=== PATIENT | female | born 1965 | race Caucasian/White ===

== ENCOUNTER 2017-10-04 07:49 | Day surgery (SDC) | payer SELFPAY ==
[~2017-10-04 07:49] MED LIST: Lactated Ringers 1,000 ML IV SCH; Lidocaine 1%/Sod Bicarbonate in NS 8.4% 1 ML Syringe IDERM PRN; Sodium Chloride 0.9% 10 ML Syringe FLUSH PRN
[2017-10-04] MEDS ORDERED: fentaNYL 100 MCG/2 ML SDV ONE (08:09)
[2017-10-04] MEDS ORDERED: Midazolam 1 MG/ML 2 ML SDV ONE (08:09)
[2017-10-04] MEDS ORDERED: Propofol 200 MG/20 ML SDV ONE (08:09)
[2017-10-04] MEDS ORDERED: Lidocaine 1% 4 ML ONE (08:09)
--- NOTE | 2017-10-04 08:48 | PCM.PREANE ---
Preanesthetic Assessment - Procedure Proposed Procedure: diagnostic egd and colon - Anesthesia/Transfusion/Family Hx Anesthesia History: Prior Anesthesia Without Reaction Family History of Anesthesia Reaction: No Transfusion History: No Prior Transfusion(s) - Review of Systems General: No Symptoms Pulmonary: No Symptoms Cardiovascular: No Symptoms Gastrointestinal: No Symptoms Neurological: Seizure (once- 2007) Other: Reports: Depression, Anxiety - Physical Assessment NPO Status Date: 10/04/17 NPO Status Time: 23:55 (sip with pills at 0700) O2 Sat by Pulse Oximetry: 97 Respiratory Rate: 17 Vital Signs: Last Vital Signs Temp 98.1 F 10/04/17 07:55 Pulse 75 10/04/17 07:55 Resp 17 10/04/17 07:55 BP 111/76 10/04/17 07:55 Pulse Ox 97 10/04/17 07:55 Height: 5 ft 6 in Weight: 84.7 kg ASA Class: 2 Mental Status: Alert & Oriented x3 Airway Class: Mallampati = 1 Dentition: Reports: Normal Dentition, Broken Tooth/Teeth (chipped) ROM/Head Extension: Full Lungs: Clear to Auscultation, Normal Respiratory Effort, Crackles Cardiovascular: Regular Rate, Regular Rhythm - Allergies Allergies/Adverse Reactions: Allergies Allergy/AdvReac Type Severity Reaction Status Date / Time No Known Allergies Allergy Verified 10/04/17 08:24 - Blood Blood Available: No - Acknowledgements Anesthesia Type Planned: MAC Pt an Appropriate Candidate for the Planned Anesthesia: Yes Alternatives and Risks of Anesthesia Discussed w Pt/Guardian: Yes Pt/Guardian Understands and Agrees with Anesthesia Plan: Yes PreAnesthesia Questionnaire HEENT History: Reports: Impaired Vision Cardiovascular History: Reports: None Respiratory History: Reports: SOB (with exertion) Gastrointestinal History: Reports: Helicobacter Pylori Genitourinary History: Reports: None FERRY HAND History: Reports: None Musculoskeletal History: Reports: None Neurological History: Reports: Seizure Psychiatric History: Reports: Anxiety, Depression Endocrine/Metabolic History: Reports: None, Obesity/BMI 30+ Hematologic History: Reports: Anemia Immunologic History: Reports: None Oncologic (Cancer) History: Reports: None Dermatologic History: Reports: Psoriasis - Past Surgical History Head Surgeries/Procedures: Reports: None HEENT Surgical History: Reports: None Cardiovascular Surgical History: Reports: None Respiratory Surgical History: Reports: None GI Surgical History: Reports: None Female Surgical History: Reports: None, Section, D&C Male Surgical History: Reports: None Endocrine Surgical History: Reports: None Musculoskeletal Surgical History: Reports: Other (See Below) Other Musculoskeletal Surgeries/Procedures:: left wrist surgery Oncologic Surgical History: Reports: None Dermatological Surgical History: Reports: None - SUBSTANCE USE Smoking Status *Q: Never Smoker Tobacco Use Within Last Twelve Months: No Second Hand Smoke Exposure: No Days Per Week of Alcohol Use: 0 (seldom) Recreational Drug Use History: No - HOME MEDS Home Medications: Home Meds Acetaminophen [Tylenol Extra Strength] 500 mg PO Q4H PRN 10/01/17 [History] Colloidal Oatmeal [Gold Roca Ultimate Eczema Rlf] 1 dose TOP BID PRN 10/01/17 [ History] Ferrous Sulfate [Iron] 325 mg PO BID 10/01/17 [History] Ibuprofen 600 mg PO Q6H PRN 10/01/17 [History] Loratadine [Claritin] 10 mg PO DAILY 10/01/17 [History] Multivitamin [Daily Multiple Vitamin] 1 tab PO BID 10/01/17 [History] Sertraline [Zoloft] 50 mg PO DAILY 10/01/17 [History] Tetrahydrozoline HCl [Eye Drops] 1 drop EYEBOTH Q4H PRN 10/01/17 [History] lamoTRIgine [Lamictal] 100 mg PO BID 10/01/17 [History] - CURRENT (IN HOUSE) MEDS Current Meds: Current Medications Lactated Ringer's (Ringers, Lactated) 1,000 mls @ 125 mls/hr IV ASDIRECTED CARLEEN Stop: 10/04/17 23:00 Last Admin: 10/04/17 08:12 Dose: 125 mls/hr Lidocaine/Sodium Bicarbonate (Buffered Lidocaine 1% In Ns 8.4%) 0.25 ml IDERM ONETIME PRN PRN Reason: Prior to IV Start Stop: 10/04/17 18:00 Sodium Chloride (Saline Flush) 10 ml FLUSH ASDIRECTED PRN PRN Reason: Keep Vein Open Stop: 10/04/17 18:00 Discontinued Medications Fentanyl (Sublimaze) Confirm Administered Dose 100 mcg .ROUTE .STK-MED ONE Stop: 10/04/17 08:10 Lidocaine HCl (Xylocaine-Mpf 1%) Confirm Administered Dose 4 mls @ as directed .ROUTE .STK-MED ONE Stop: 10/04/17 08:10 Midazolam HCl (Versed 1 Mg/Ml) Confirm Administered Dose 2 mg .ROUTE .STK-MED ONE Stop: 10/04/17 08:10 Propofol (Diprivan 20 Ml) Confirm Administered Dose 400 mg .ROUTE .STK-MED ONE Stop: 10/04/17 08:10
[2017-10-04] MEDS ORDERED: Ondansetron 4 MG/2 ML SDV IVPUSH PRN (10:43)
--- NOTE | 2017-10-04 10:43 | PCM.OPNOTE ---
- General Post-Op/Procedure Note Date of Surgery/Procedure: 10/04/17 Operative Procedure(s): EGD with bx and colonosocopy to cecum with bx and polypectomy Pre Op Diagnosis: anemia Post-Op Diagnosis: anemia Primary Surgeon: Jeremiah Treadwell EBL in mLs: 0 Complications: None Condition: Good
--- NOTE | 2017-10-04 10:44 | PCM48HPAN ---
Post Anesthesia Note - EVALUATION WITHIN 48HRS OF ANESTHETIC Vital Signs in Normal Range: Yes Patient Participated in Evaluation: Yes Respiratory Function Stable: Yes Airway Patent: Yes Cardiovascular Function Stable: Yes Hydration Status Stable: Yes Pain Control Satisfactory: Yes Nausea and Vomiting Control Satisfactory: Yes Mental Status Recovered: Yes Pulse Rate: 77 SaO2: 95 Resp Rate: 14 Temperature: 97.6 F Blood Pressure: 102/68
--- NOTE | 2017-10-05 08:49 | OR ---
DATE OF OPERATION: 10/04/2017 SURGEON: Jeremiah Treadwell MD PREOPERATIVE DIAGNOSIS: Anemia. POSTOPERATIVE DIAGNOSIS: Anemia. OPERATION PERFORMED: Esophagogastroduodenoscopy with biopsy. FINDINGS: Fixed hiatal hernia. GE junction at 30 cm with esophageal erosions noted fci around the esophagus with eschar. There was associated with an incompetent hiatus. Second portion of the duodenum, duodenal bulb, pyloric channel were unremarkable. Antrum did not show any gross pathology. Body and cardia and fundus of the stomach were unremarkable. The biopsy of the antrum was done looking for H. pylori. ANESTHESIA: Procedure done under IV sedation, EGD with biopsy. DESCRIPTION OF PROCEDURE: The patient was taken to the endoscopy room, placed in a supine position, connected to monitoring equipment, given IV sedation and placed in the left lateral position. A bite block was inserted and video Olympus gastroscope placed in the posterior oropharynx, under direct vision threaded past the cricopharyngeus down the esophagus into the stomach. The stomach was insufflated, and the scope passed through the pylorus to the second portion of the duodenum. This slowly withdrawn showing normal 2nd portion of the duodenum, duodenal bulb, pyloric channel. Antrum, body, and cardia of the stomach were viewed unremarkable. J maneuver was performed showing an incompetent hiatus. Biopsies of the antrum were performed. The scope withdrawn to the GE junction where the above noted was found and multiple biopsies were taken of the GE junction. The rest of the esophagus was viewed from 30 cm up and was unremarkable. The patient tolerated the procedure and will continue with IV sedation for colonoscopy. ESTIMATED BLOOD LOSS: MMODAL /[id number]
--- NOTE | 2017-10-05 09:15 | OR ---
DATE OF OPERATION: 10/04/2017 SURGEON: Jeremiah Treadwell MD PREOPERATIVE DIAGNOSIS: Anemia. POSTOPERATIVE DIAGNOSIS: Anemia. OPERATION PERFORMED: Colonoscopy to cecum with cannulation of the ileum, removal of a diminutive polyp at 50 cm by cold biopsy forceps with retrieval, and biopsy of the rectum. FINDINGS: A small diminutive polyp at 50 cm which was removed completely, and there were some aphthous ulcers noted in the rectum, either might be related to the prep. Biopsies were taken. There was an occasional diverticulum in the sigmoid colon. There were no large tumor masses, ulcerations, angiodysplasias, or notable hemorrhoids. ANESTHESIA: Procedure done under IV sedation. DESCRIPTION OF PROCEDURE: The patient was taken to the endoscopy room and having been connected to monitoring equipment, given IV sedation and for upper GI endoscopy. IV sedation was continued for colonoscopy. She was placed in the left lateral position. Perianal area was inspected and was normal. Rectal exam showed good sphincter tone. A video Olympus colonoscope was then introduced into the rectum and threaded up without problem to the cecum where the appendicular orifice was noted. Ileum was cannulated without any problem. The prep was excellent throughout. [place] Cleansing score grade A, and the scope was slowly withdrawn showing the cecum, ascending colon, transverse colon, descending colon, sigmoid colon, and rectum. The above noted was found. A polyp at 50 cm identified, was diminutive, and removed completely with cold biopsy forceps. There were some aphthous sores like lesions in the rectum, and these were biopsied. The patient tolerated the procedure, sent to recovery room in stable condition. Specimen sent to Pathology in a labeled container, and the patient will be followed up in the clinic. ESTIMATED BLOOD LOSS: MMODAL /[id number]
== END 2017-10-04 11:21 | disposition home or self-care (01) ==
LOC: JD.SDS 07:49
PROVIDERS: ATTEND Surgery
DX: K29.50 Unspecified chronic gastritis without bleeding (principal); D12.7 Benign neoplasm of rectosigmoid junction; K44.9 Diaphragmatic hernia without obstruction or gangrene; D64.9 Anemia, unspecified; K62.6 Ulcer of anus and rectum; K57.30 Diverticulosis of large intestine without perforation or abscess without bleeding; K22.10 Ulcer of esophagus without bleeding
CPT/HCPCS: 43239; 45380; J2001; J2250; J3010; J7120; 00813; J2704

== ENCOUNTER 2020-09-16 19:36 | Emergency (ER) | payer BC ==
--- NOTE | 2020-09-16 20:43 | EDM.PDOC ---
ED HPI GENERAL MEDICAL PROBLEM - General Chief Complaint: Respiratory Problem Stated Complaint: SOB Time Seen by Provider: 09/16/20 20:09 Source of Information: Reports: Patient History Limitations: Reports: Other (Patient is impatient, does not want to answer questions) - History of Present Illness INITIAL COMMENTS - FREE TEXT/NARRATIVE: Ms. Hubbard is a 54-year-old woman who now presents the ED stating that she has been experiencing dyspnea on and off over the past week, primarily triggered when she smells a neighbor's cigarette smoke, although more recently it may have been triggered by other smells. She also experiences dyspnea on exertion. She states that she sometimes finds herself wheezing at night, which she is able to clear with a cough. She reports experiencing retrosternal chest discomfort, a tightness, today, but only with exertion. She feels that her chest is tight because of her trouble breathing. She is able to relieve the chest tightness if she takes a deep breath and holds it. The patient was seen at the walk-in clinic around 1730 this evening. Paperwork from the walk-in clinic indicates that they performed a CBC, D-dimer, a swab for the SARS-CoV-2 virus, a chest x-ray, and an ECG. Her CBC was remarkable for an H/H but at 16.0/50.2, respectively, with the remainder of her CBC being unremarkable. Her D-dimer was slightly elevated at 0.56. Her swab for the SARS-CoV-2 virus returned negative. The chest x-ray was read by radiology as "Patchy atelectasis in the lingula. No focal consolidation or pleural effusions. Normal heart size. Degenerative changes in the the spine." ECG demonstrated a normal sinus rhythm at 94 bpm. No atrial enlargement or AV block. No ischemic changes. Poor R wave progression. 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 No LVH or RVH. No intraventricular conduction delays. Her QTc was within normal limits at 414 ms. The patient states that she was not given any medication, but sent here because of the abnormal D-dimer and ECG. Here in the ED, the patient is found to be hemodynamically stable, afebrile, saturating 97% on room air. She is in no acute distress, but, for reasons unclear, appears to be angry. Prior to the last week, the patient denies having a recent fever, chills, sore throat, ear pain, nasal or sinus congestion, cough, dyspnea, chest pain, palpitations, nausea, vomiting, constipation, diarrhea, abdominal pain, urinary symptoms, recent weight gain or weight loss, recent bloody bowel movements or black bowel movements, recent joint aches, headaches, or rashes. I reviewed the PMHx/PSHx/SocHx, which was reviewed with the patient by the RN. The patient does not have a PCP. - Related Data Allergies Allergy/AdvReac Type Severity Reaction Status Date / Time No Known Allergies Allergy Verified 09/16/20 20:02 Home Meds: Home Meds Ferrous Sulfate [Iron] 325 mg PO DAILY 10/01/17 [History] Loratadine [Claritin] 10 mg PO DAILY 10/01/17 [History] Tetrahydrozoline HCl [Eye Drops] 1 drop EYEBOTH Q4H PRN 10/01/17 [History] Cholecalciferol (Vitamin D3) [Vitamin D3] 1,000 unit PO DAILY 09/16/20 [History] Omeprazole Magnesium [Prilosec Otc] 20 mg PO DAILY 09/16/20 [History] Soy Isofla/Blk Cohosh/Mag Bark [Estroven 155 mg Capsule] 155 mg PO DAILY 09/16/20 [History] Past Medical History HEENT History: Reports: Impaired Vision Cardiovascular History: Reports: None Respiratory History: Reports: SOB Gastrointestinal History: Reports: GERD, Helicobacter Pylori Genitourinary History: Reports: None [employer] RN History: Reports: None Musculoskeletal History: Reports: None Neurological History: Reports: Seizure Other Neuro History: was released November 2019 from neurologist for seizures Psychiatric History: Reports: Anxiety, Depression Endocrine/Metabolic History: Reports: Obesity/BMI 30+ Hematologic History: Reports: Anemia Immunologic History: Reports: None Oncologic (Cancer) History: Reports: None Dermatologic History: Reports: Psoriasis - Past Surgical History HEENT Surgical History: Reports: None Cardiovascular Surgical History: Reports: None Respiratory Surgical History: Reports: None Female Surgical History: Reports: Section, D&C Musculoskeletal Surgical History: Reports: Arthroscopic Procedure, Other (See Below) Other Musculoskeletal Surgeries/Procedures:: left wrist surgery Social & Family History - Tobacco Use Tobacco Use Status *Q: Never Tobacco User - Caffeine Use Caffeine Use: Reports: Coffee - Recreational Drug Use Recreational Drug Use: No ED ROS GENERAL - Review of Systems Review Of Systems: Comprehensive ROS is negative, except as noted in HPI. ED EXAM, GENERAL - Physical Exam Exam: See Below Exam Limited By: No Limitations General Appearance: Alert, WD/WN, No Apparent Distress Eye Exam: Bilateral Eye: EOMI, Normal Inspection Ears: Normal External Exam, Hearing Grossly Normal Nose: Normal Inspection Throat/Mouth: Normal Inspection, Normal Lips, Normal Voice, No Airway Compromise Head: Atraumatic, Normocephalic Neck: Normal Inspection, Full Range of Motion Respiratory/Chest: No Respiratory Distress, Lungs Clear, Normal Breath Sounds, No Accessory Muscle Use, Chest Non-Tender, Wheezing (single wheeze heard on initial inspiration, after which none). No: Decreased Breath Sounds, Crackles, Rhonchi, Stridor, Prolonged Expiration Cardiovascular: Normal Peripheral Pulses, Regular Rate, Rhythm, No Edema, No Gallop, No JVD, No Murmur, No Rub Peripheral Pulses: 3+: Radial (L), Radial (R) GI/Abdominal: Normal Bowel Sounds, Soft, Non-Tender, No Organomegaly, No Distention, No Abnormal Bruit, No Mass Back Exam: Normal Inspection, Full Range of Motion, NT Extremities: Normal Inspection, Normal Range of Motion, No Pedal Edema, Normal Capillary Refill Neurological: Alert, Oriented, Normal Cognition, No Motor/Sensory Deficits Psychiatric: Anxious (states is anxious about what might be going on) Skin Exam: Warm, Dry, Intact, Normal Color, No Rash #1 Interpretation EKG Date: 09/16/20 Time: 20:51 Rhythm: NSR Rate (Beats/Min): 80 [place]: Normal P-Wave: Present QRS: Normal ST-T: Normal QT: Normal Comparison: NA - No Prior EKG Course - Vital Signs Last Recorded V/S: Last Vital Signs Temp 37.0 C 09/16/20 20:00 Pulse 82 09/16/20 23:15 Resp 12 09/16/20 23:15 BP 134/81 09/16/20 20:00 Pulse Ox 96 09/16/20 23:15 - Orders/Labs/Meds Orders: Active Orders 24 hr Category Date Time Status Ang Chest [CT] Stat Exams 09/16/20 20:36 Taken Labs: Laboratory Tests 09/16/20 09/16/20 09/16/20 Range/Units 20:40 20:51 21:02 Sodium 140 (136-145) mEq/L Potassium 3.8 (3.5-5.1) mEq/L Chloride 105 (98-107) mEq/L Carbon Dioxide 29 (21-32) mEq/L Anion Gap 9.8 (5-15) BUN 17 (7-18) mg/dL Creatinine 0.8 (0.55-1.02) mg/dL Est Cr Clr Drug Dosing 74.38 mL/min Estimated GFR (MDRD) > 60 (>60) mL/min BUN/Creatinine Ratio 21.3 H (14-18) Glucose 98 (74-106) mg/dL Lactic Acid 0.5 (0.4-2.0) mmol/L Calcium 10.3 H (8.5-10.1) mg/dL Magnesium 2.1 (1.8-2.4) mg/dl Total Bilirubin 0.4 (0.2-1.0) mg/dL AST 20 (15-37) U/L ALT 31 (14-59) U/L Alkaline Phosphatase 148 H (46-116) U/L Troponin I < 0.017 (0.00-0.056) ng/mL Total Protein 7.2 (6.4-8.2) g/dl Albumin 3.7 (3.4-5.0) g/dl Globulin 3.5 gm/dL Albumin/Globulin Ratio 1.1 (1-2) Influenza Type A RNA Negative (NEGATIVE) Influenza Type B RNA Negative (NEGATIVE) SARS-CoV-2 RNA (IGNACIO) Negative (NEGATIVE) Meds: Medications Discontinued Medications Generic Name Dose Route Start Last Admin Trade Name Freq PRN Reason Stop Dose Admin Sodium Chloride 1,000 mls @ 150 mls/hr 09/16/20 20:45 09/16/20 21:04 Normal Saline IV 150 mls/hr ASDIRECTED [facility] Administration - Re-Assessments/Exams Free Text/Narrative Re-Assessment/Exam: 09/16/20 20:38 As above, the patient is here for dyspnea and chest discomfort, however, getting an exact history is difficult, as the patient does not really want to answer questions. As best I can piece together, she has dyspnea on and off, particularly if she smells a neighbor's smoke, but her dyspnea has been getting worse over the past week, and not necessarily related to smelling smoke. It may have been related to smelling something else. She also reports having some wheezing at night, but it clears if she coughs. She has not otherwise been coughing. No recent fever. She reports having some retrosternal chest discomfort that is able to "break" if she takes a deep breath and holds it, and it also sounds like the discomfort that she is experiencing is because she is having trouble breathing, and not necessarily an independent chest discomfort. She was seen at the walk-in clinic this evening, where a CBC, D-dimer, swab for the SARS-CoV-2 virus, a chest x-ray, and ECG were performed. Her chest x-ray was read as patchy atelectasis of her lingula, and was otherwise unremarkable, and her D-dimer returned slightly elevated at 0.56. Her ECG was computer-read as "consider anterior infarct" however, reviewing the ECG myself, I see only mild LAD, most likely due to a LAFB, no ischemic changes or other abnormalities. On examination here in the ED, I heard a single inspiratory wheeze, once, after which her lungs remained entirely clear to auscultation bilaterally, with no crackles, rhonchi, or wheezes. Her chest is not tender to palpation. I have ordered a work-up that includes some blood tests not performed at the walk-in clinic, a swab for the SARS-CoV-2 virus and influenza A + B viruses, a CTA of the chest to expressly rule out a PE or pneumonia, and an ECG. In the meantime, the patient will be given some IV fluid. 09/16/20 23:04 The patient's CMP is remarkable for an alkaline phosphatase mildly elevated 148, and is otherwise unremarkable. Her magnesium level is within normal limits at 2.1. Her lactic acid level is within normal limits at 0.5. Her troponin is undetectably low. Her swab for the SARS-CoV-2 virus and influenza A + B viruses has returned negative for all. 09/16/20 23:11 CT angiogram of the chest is read by [facility] as "No acute cardiopulmonary disease." 09/16/20 23:14 Test results discussed with the patient. She states that she is feeling better at this time. As above, today's work-up is completely unremarkable, and does not explain the cause of her symptoms, however, I reassured her that there does not appear to be anything terrible happening, such as pneumonia, heart attack, or pulmonary embolus. I offered to refer the patient to a PCP for follow-up, but she declined. Departure - Departure Time of Disposition: 23:17 Disposition: Home, Self-Care 01 Condition: Good Clinical Impression: Dyspnea, Chest tightness - Discharge Information *PRESCRIPTION DRUG MONITORING PROGRAM REVIEWED*: Not Applicable *COPY OF PRESCRIPTION DRUG MONITORING REPORT IN PATIENT CHACHA: Not Applicable Instructions: Shortness of Breath, Adult, [id number], Nonspecific Chest Pain, Adult, [id number] Referrals: PCP,None [Primary Care Provider] - Forms: ED Department Discharge Additional Instructions: You were seen in the emergency room for progressively worsening shortness of breath, associated with tightness in your chest. Work-up in the ER included several blood tests, a CT angiogram of your chest, and an ECG. Your entire work-up was unremarkable, and does not explain the cause of your symptoms. You have not suffered a heart attack. You do not have a blood clot in your lungs. You do not have pneumonia, or a collapsed lung. If your symptoms persist, we recommend that you follow-up with the PCP of your choice. If any other problems, please do not hesitate to return to the ER. Sepsis Event Note (ED) - Evaluation Sepsis Screening Result: No Definite Risk - Focused Exam Vital Signs: Vital Signs Temp Pulse Resp BP Pulse Ox 09/16/20 23:15 82 12 96 09/16/20 20:00 37.0 C 90 17 134/81 97 - My Orders Last 24 Hours: My Active Orders 09/16/20 20:36 Ang Chest [CT] Stat - Assessment/Plan Last 24 Hours: My Active Orders 09/16/20 20:36 Ang Chest [CT] Stat
[2020-09-16] MEDS ORDERED: Sodium Chloride 0.9% 1,000 ML IV SCH (20:45)
[2020-09-16 21:55] LABS: CORONAVIRUS COVID-19 NAA NEGATIVE (NEGATIVE)
--- NOTE | 2020-09-17 08:48 | CT ---
CT chest Technique: Multiple axial sections through the chest were obtained. Study was performed as a pulmonary angiogram protocol and intravenous contrast was utilized. Comparison: No prior chest imaging is available. Findings: Pulmonary arteries are well opacified. No filling defects are seen to indicate pulmonary embolism. Thoracic aorta shows no aneurysm. Mediastinum and hilar regions show no adenopathy. No pericardial thickening is seen. Small to moderate sized hiatal hernia is noted. No acute abdominal abnormality is otherwise seen on this exam. Slight atelectasis or scarring is seen within the lingula. Lungs otherwise are clear. Bone window settings were reviewed which show mild scattered degenerative change within the spine. No acute osseous abnormality is appreciated. Impression: 1. No findings of pulmonary embolism. 2. Small to moderate sized hiatal hernia. Other findings believed to be chronic as noted above. 3. Nothing acute is seen on CT study of the chest. Diagnostic code #2 I agree with preliminary report from [facility], finalized on 09/17/20, 12:00 AM CDT, code 1
== END 2020-09-16 23:25 | disposition home or self-care (01) ==
LOC: JD.ED 19:36
DX: R07.2 Precordial pain (principal); R07.89 Other chest pain; R06.02 Shortness of breath; K21.9 Gastro-esophageal reflux disease without esophagitis; E66.9 Obesity, unspecified; Z68.33 Body mass index [BMI] 33.0-33.9, adult; Z20.822 Contact with and (suspected) exposure to COVID-19
CPT/HCPCS: 0240U; 36415; 71275; 80053; 83605; 83735; 84484; 93005; 99285; J7030; 93010; 99284

== ENCOUNTER 2022-06-15 09:36 | Emergency (ER) | payer BC | END 2022-06-15 12:45 | disposition home or self-care (01) | LOC: JD.ED 09:36 | DX: E86.0 Dehydration (principal); E66.9 Obesity, unspecified; Z68.31 Body mass index [BMI] 31.0-31.9, adult; Z79.899 Other long term (current) drug therapy | CPT/HCPCS: 36415; 80053; 83735; 85025; 99284 ==